=== PATIENT | male | born 1985 | race Caucasian/White ===

== ENCOUNTER 2024-01-11 15:52 | Emergency (ER) | payer OTHER, SELFPAY ==
[2024-01-11 16:24] VITALS: BP 130/86; PULSE 90; RESP 18; TEMP 37.3; O2SAT 98
--- NOTE | 2024-01-11 16:53 | ED.EAR ---
HPI - Ear Problem General Chief complaint: Ear Stated complaint: headaches Time Seen by Provider: 01/11/24 16:53 Source: patient Mode of arrival: ambulatory Limitations: no limitations History of Present Illness HPI Narrative: 38-year-old male presents with complaint of right ear pain for 2 days. Wears earplugs at work and thinks that might be related. Causing him to have headache today. Afebrile. all systems reviewed and negative except as noted above. Related Data Home Medications Medication Instructions Recorded Confirmed gabapentin 100 mg capsule 100 mg PO DAILY 01/11/24 01/11/24 Allergies Allergy/AdvReac Type Severity Reaction Status Date / Time No Known Allergies Allergy Verified 01/11/24 16:47 Review of Systems Review of Systems: CONSTITUTIONAL: Denies fever, chills, or sweats. EYES: Denies visual changes, redness, or discharge. ENT: Denies rhinorrhea, congestion, sore throat . Reports right ear pain. CARDIOVASCULAR: Denies chest pain, palpitations, or edema. RESPIRATORY: Denies cough or dyspnea. GASTROINTESTINAL: Denies abdominal pain, nausea, vomiting, or diarrhea. GENITOURINARY: Denies dysuria or hematuria. SKIN: Denies rash or itching. MUSCULOSKELETAL: Denies back pain, joint pain, or myalgia. NEUROLOGIC: Denies headache, numbness, or weakness. PSYCHIATRIC: Denies anxiety or depression. All other systems reviewed are negative, except as documented in HPI. PMFSH Comments At time of signature, agree with nursing past medical, surgical, social and family history. There is no relevant family history pertinent to the presenting complaint. Exam Narrative: GENERAL: This is a well-nourished, well-developed patient, in no apparent distress. HEAD: normocephalic, atraumatic. EYES: PERRL. Sclera clear/white. Vision is grossly intact. EARS: External ears normal, auditory canals clear and without drainage, Right TM erythematous and retracted. Left TM is normal. No perforation bilaterally. Hearing grossly intact. NOSE: External nose normal NECK: Neck supple, non-tender without lymphadenopathy, masses or thyromegaly. CARDIOVASCULAR: Regular rate and rhythm without murmurs, gallops, or rubs. RESPIRATORY: Clear to auscultation. Breath sounds equal bilaterally. No wheezes, rales, or rhonchi. SKIN: warm, Dry, intact with no suspicious lesions or rash, good texture and turgor. NEURO: awake, alert, and oriented to person, place and time. There were no obvious focal neurologic abnormalities. EXTREMITIES: No joint tenderness, effusion, or edema noted. Course Course Level of Care: Express Care Visit Vital Signs Vital signs: Vital Signs Temperature 37.3 C 01/11/24 16:24 Pulse Rate 90 01/11/24 16:24 Respiratory Rate 18 01/11/24 16:24 Blood Pressure 130/86 01/11/24 16:24 Pulse Oximetry 98 01/11/24 16:24 Oxygen Delivery Room Air 01/11/24 16:24 Temperature 37.3 C 01/11/24 16:24 Pulse Rate 90 01/11/24 16:24 Respiratory Rate 18 01/11/24 16:24 Blood Pressure 130/86 01/11/24 16:24 Pulse Oximetry 98 01/11/24 16:24 Oxygen Delivery Room Air 01/11/24 16:24 reviewed Medical Decision Making MDM Narrative Medical decision making narrative: Patient is aware of diagnosis, understands and agrees to treatment plan. Anticipatory guidance given. Patient agrees to follow-up as directed and is aware of reasons to seek care at the emergency department. Portions of this record may have been created with voice recognition software Vital Signs Vital Signs: Vital Signs Temperature 37.3 C 01/11/24 16:24 Pulse Rate 90 01/11/24 16:24 Respiratory Rate 18 01/11/24 16:24 Blood Pressure 130/86 01/11/24 16:24 Pulse Oximetry 98 01/11/24 16:24 Oxygen Delivery Room Air 01/11/24 16:24 Temperature 37.3 C 01/11/24 16:24 Pulse Rate 90 01/11/24 16:24 Respiratory Rate 18 01/11/24 16:24 Blood Pressure 130/86 01/11/24 16:24 Pulse Oximetry
== END 2024-01-11 17:00 | disposition home or self-care (01) ==
PROVIDERS: Emergency Provider Nurse Practitioner Family
DX: H66.91 Otitis media, unspecified, right ear (principal)
CPT/HCPCS: 99203; G0463